=== PATIENT | male | born 1960 | race American Indian/Alaskan Native ===

== ENCOUNTER 2018-02-04 13:41 | Emergency (ER) | payer OTHER | END 2018-02-04 14:45 | disposition left against medical advice (07) | LOC: DL.ED 13:41 | DX: Z53.21 Procedure and treatment not carried out due to patient leaving prior to being seen by health care provider (principal) | CPT/HCPCS: 99283 ==

== ENCOUNTER 2018-02-04 15:39 | Emergency (ER) | payer OTHER ==
[2018-02-04 16:03] VITALS: BP 184/103
[2018-02-04 16:56] LABS: CHLORIDE,CL 103 mmol/L (101-111); SODIUM,NA 136 mmol/L (135-145)
--- NOTE | 2018-02-04 17:10 | EDM.PDOC ---
ED HPI GENERAL MEDICAL PROBLEM - General Chief Complaint: Abdominal Pain Stated Complaint: [id number] APPENDIX Time Seen by Provider: 02/04/18 17:00 Source of Information: Reports: Patient, RN, RN Notes Reviewed History Limitations: Reports: No Limitations - History of Present Illness INITIAL COMMENTS - FREE TEXT/NARRATIVE: Barrington is a 57 yo male who presents to the ED with a two days history of lower abd pain. Reports that the pain started while he was sitting at work. Pain is off and on. Describes as cramping pain. Denies fever, dysuria, flank pain, constipation, diarrhea, or blood in his stool, nausea, or vomiting. Denies hx of abd surgeries or trauma to abd. Onset Date: 02/02/18 Location: Reports: Abdomen Quality: Reports: Ache Severity: Moderate Improves with: Reports: None Worsens with: Reports: None Middle Abdomen Pain Score (Numeric/FACES): 8 - Related Data Allergies Allergy/AdvReac Type Severity Reaction Status Date / Time No Known Allergies Allergy Verified 02/04/18 15:55 Home Meds: Home Meds oxyCODONE 5 mg PO Q6H PRN 06/25/16 [History] Past Medical History - Past Health History Medical/Surgical History: Denies Medical/Surgical History HEENT History: Reports: Impaired Vision Cardiovascular History: Reports: None Respiratory History: Reports: None Gastrointestinal History: Reports: None Genitourinary History: Reports: None Musculoskeletal History: Reports: Back Pain, Chronic, Neck Pain, Chronic, Other (See Below) Other Musculoskeletal History: "pinched nerve in back" Neurological History: Reports: None Psychiatric History: Reports: None Endocrine/Metabolic History: Reports: None Hematologic History: Reports: None Immunologic History: Reports: None Oncologic (Cancer) History: Reports: None Dermatologic History: Reports: None - Infectious Disease History Infectious Disease History: Reports: None - Past Surgical History Head Surgeries/Procedures: Reports: None Social & Family History - Family History Family Medical History: Noncontributory - Tobacco Use Smoking Status *Q: Current Every Day Smoker Years of Tobacco use: 38 Packs/Tins Daily: 1 Used Tobacco, but Quit: No Second Hand Smoke Exposure: Yes - Caffeine Use Caffeine Use: Reports: Coffee - Recreational Drug Use Recreational Drug Use: No - Living Situation & Occupation Living situation: Reports: , with Family Occupation: Employed ED ROS GENERAL - Review of Systems Review Of Systems: ROS reveals no pertinent complaints other than HPI. ED EXAM, GI/ABD - Physical Exam Exam: See Below Exam Limited By: No Limitations General Appearance: Alert, WD/WN, No Apparent Distress Eyes: Bilateral: Normal Appearance, EOMI Ears: Normal External Exam, Normal Canal, Hearing Grossly Normal, Normal TMs Nose: Normal Inspection, Normal Mucosa, No Blood Throat/Mouth: Normal Inspection, Normal Lips, Normal Teeth, Normal Gums, Normal Oropharynx, Normal Voice, No Airway Compromise Head: Atraumatic, Normocephalic Neck: Normal Inspection, Supple, Non-Tender, Full Range of Motion Respiratory/Chest: No Respiratory Distress, Lungs Clear, Normal Breath Sounds, No Accessory Muscle Use, Chest Non-Tender Cardiovascular: Normal Peripheral Pulses, Regular Rate, Rhythm, No Edema, No Gallop, No JVD, No Murmur, No Rub GI/Abdominal Exam: Normal Bowel Sounds, Soft, No Organomegaly, No Distention, No Abnormal Bruit, No Mass, Tender (Bilateral lower abd pain ) (Male) Exam: Deferred Rectal (Males) Exam: Deferred Back Exam: Normal Inspection, Full Range of Motion, NT Extremities: Normal Inspection, Normal Range of Motion, Non-Tender, Normal Capillary Refill, No Pedal Edema Neurological: Alert, Oriented, CN II-XII Intact, Normal Cognition, Normal Gait, Normal Reflexes, No Motor/Sensory Deficits Psychiatric: Normal Affect, Normal Mood Skin Exam: Warm, Dry, Intact, Normal Color, No Rash Lymphatic: No Adenopathy Course - Vital Signs Last Recorded V/S: Last Vital Signs Temp 36.4 C 02/04/18 16:00 Pulse 60 02/04/18 16:00 Resp 16 02/04/18 16:00 BP 184/103 H 02/04/18 16:00 Pulse Ox 100 02/04/18 16:00 - Orders/Labs/Meds Labs: Laboratory Tests 02/04/18 02/04/18 02/04/18 Range/Units 16:10 16:10 16:27 WBC (5.0-10.0) 10^3/uL RBC (4.6-6.2) 10^6/uL Hgb (14.0-18.0) g/dL Hct (40.0-54.0) % MCV (80-100) fL MCH (27.0-34.0) pg MCHC (33.0-35.0) g/dL Plt Count (150-450) 10^3/uL Neut % (Auto) (42.2-75.2) % Lymph % (Auto) (20.5-50.1) % [place] % (Auto) (2-8) % Eos % (Auto) (1.0-3.0) % Baso % (Auto) (0.0-1.0) % Sodium (135-145) mmol/L Potassium (3.6-5.0) mmol/L Chloride (101-111) mmol/L Carbon Dioxide (21.0-31.0) mmol/L Anion Gap BUN (7-18) mg/dL Creatinine (0.6-1.3) mg/dL Est Cr Clr Drug Dosing mL/min Estimated GFR (MDRD) BUN/Creatinine Ratio Glucose (74-105) mg/dL Calcium (8.4-10.2) mg/dl Total Bilirubin (0.2-1.0) mg/dL AST (10-42) IU/L ALT (10-60) IU/L Alkaline Phosphatase (42-121) IU/L Total Protein (6.7-8.2) g/dl Albumin (3.2-5.5) g/dl Globulin Albumin/Globulin Ratio Amylase 18 L (28-100) U/L Lipase 12 L (22-51) U/L Urine Color Yellow (YELLOW) Urine Appearance Clear (CLEAR) Urine pH 7.0 (5.0-9.0) Ur Specific [place] 1.015 (1.005-1.030) Urine Protein Negative (NEGATIVE) Urine Glucose (UA) Negative (NEGATIVE) Urine Ketones Negative (NEGATIVE) Urine Occult Blood Negative (NEGATIVE) Urine Nitrite Negative (NEGATIVE) Urine Bilirubin Negative (NEGATIVE) Urine Urobilinogen 0.2 (0.2-1.0) mg/dL Ur Leukocyte Esterase Negative (NEGATIVE) Urine RBC 0-5 /HPF Urine WBC 0-5 (0-5/HPF) /HPF Ur Epithelial Cells Rare /HPF Urine Bacteria Not seen (0-FEW/HPF) /HPF Urine Opiates Screen Negative (NEGATIVE) Ur Oxycodone Screen Negative (NEGATIVE) Urine Methadone Screen Negative (NEGATIVE) Ur Barbiturates Screen Negative (NEGATIVE) U Tricyclic Antidepress Negative (NEGATIVE) Ur Phencyclidine Scrn Negative (NEGATIVE) Ur Amphetamine Screen Negative (NEGATIVE) U Methamphetamines Scrn Negative (NEGATIVE) Urine MDMA Screen Negative (NEGATIVE) U Benzodiazepines Scrn Negative (NEGATIVE) Urine Cocaine Screen Negative (NEGATIVE) U Marijuana (THC) Screen Negative (NEGATIVE) 02/04/18 02/04/18 Range/Units 16:27 16:27 WBC 10.9 H (5.0-10.0) 10^3/uL RBC 4.84 (4.6-6.2) 10^6/uL Hgb 14.2 (14.0-18.0) g/dL Hct 42.2 (40.0-54.0) % MCV 87.2 (80-100) fL MCH 29.3 (27.0-34.0) pg MCHC 33.6 (33.0-35.0) g/dL Plt Count 295 (150-450) 10^3/uL Neut % (Auto) 53.6 (42.2-75.2) % Lymph % (Auto) 35.0 (20.5-50.1) % [place] % (Auto) 5.3 (2-8) % Eos % (Auto) 5.5 H (1.0-3.0) % Baso % (Auto) 0.6 (0.0-1.0) % Sodium 136 (135-145) mmol/L Potassium 4.9 (3.6-5.0) mmol/L Chloride 103 (101-111) mmol/L Carbon Dioxide 26.0 (21.0-31.0) mmol/L Anion Gap 11.9 BUN 20 H (7-18) mg/dL Creatinine 1.0 (0.6-1.3) mg/dL Est Cr Clr Drug Dosing 80.75 mL/min Estimated GFR (MDRD) > 60 BUN/Creatinine Ratio 20.00 Glucose 106 H (74-105) mg/dL Calcium 8.9 (8.4-10.2) mg/dl Total Bilirubin 0.6 (0.2-1.0) mg/dL AST 18 (10-42) IU/L ALT 20 (10-60) IU/L Alkaline Phosphatase 50 (42-121) IU/L Total Protein 7.2 (6.7-8.2) g/dl Albumin 3.8 (3.2-5.5) g/dl Globulin 3.4 Albumin/Globulin Ratio 1.12 Amylase (28-100) U/L Lipase (22-51) U/L Urine Color (YELLOW) Urine Appearance (CLEAR) Urine pH (5.0-9.0) Ur Specific [place] (1.005-1.030) Urine Protein (NEGATIVE) Urine Glucose (UA) (NEGATIVE) Urine Ketones (NEGATIVE) Urine Occult Blood (NEGATIVE) Urine Nitrite (NEGATIVE) Urine Bilirubin (NEGATIVE) Urine Urobilinogen (0.2-1.0) mg/dL Ur Leukocyte Esterase (NEGATIVE) Urine RBC /HPF Urine WBC (0-5/HPF) /HPF Ur Epithelial Cells /HPF Urine Bacteria (0-FEW/HPF) /HPF Urine Opiates Screen (NEGATIVE) Ur Oxycodone Screen (NEGATIVE) Urine Methadone Screen (NEGATIVE) Ur Barbiturates Screen (NEGATIVE) U Tricyclic Antidepress (NEGATIVE) Ur Phencyclidine Scrn (NEGATIVE) Ur Amphetamine Screen (NEGATIVE) U Methamphetamines Scrn (NEGATIVE) Urine MDMA Screen (NEGATIVE) U Benzodiazepines Scrn (NEGATIVE) Urine Cocaine Screen (NEGATIVE) U Marijuana (THC) Screen (NEGATIVE) Meds: Medications Discontinued Medications Generic Name Dose Route Start Last Admin Trade Name Freq PRN Reason Stop Dose Admin Iopamidol 100 ml 02/04/18 17:06 02/04/18 17:45 Isovue-300 (61%) IVPUSH 02/04/18 17:07 100 ml ONETIME ONE Administration Departure - Departure Time of Disposition: 18:27 Disposition: Home, Self-Care 01 Condition: Good Clinical Impression: Hernia - Discharge Information Forms: ED Department Discharge Additional Instructions: Labs and CT reviewed with patient. Recommend that he follows-up with his primary care provider for a surgical referral for his hernia. Tylenol/Ibuprofen as needed for pain. Patient instructed to not preform any heavy lifting. Follow- up with clinic sooner or return to ED if you develop severe pain, nausea/ vomiting, or fevers. Care Plan Goals:
--- NOTE | 2018-02-04 17:37 | CT ---
Clinical history: 57-year-old 205 pound afebrile male patient with normal white blood cell count comp laining of lower abdominal pain. Scan technique: Volume acquisition of data from the abdomen and pelvis obtained without oral contrast but during the intravenous administration 100 cc nonionic Isovue contrast while lying supine on the Siemens multi slice scanner [place], [place]. All data archived in the PAC system for storage, reformatting axial/sagittal/coronal planes and study. Interpretation: 1. Peritoneal fat in the inguinal canal on the left (no incarcerated bowel). No periumbilical or vent ral wall hernias. 2. Normal caliber abdominal aorta and the lumbar spine unremarkable. No sign of aortic aneurysm or quita mbar disc disease. 3. Normal gallbladder, liver, stomach, spleen, pancreas and adrenal glands. 4. Normal reniform size, axis and configuration bilaterally without sign of renal cortical mass lesio n, nephrolithiasis or obstructive uropathy. Midline prostate gland and symmetric seminal vesicles unr emarkable. Normal urinary bladder. 5. Normal appendix RLQ. No sign of diverticulitis, abdominal/pelvic mass lesion, retroperitoneal lymp hadenopathy, mechanical bowel obstruction, ascites or free intraperitoneal air. 6. Normal heart. Prominent pericardial fat. Lung bases clear. CONCLUSION: No acute intraperitoneal abnormality.
[2018-02-04] MEDS: Iopamidol 612 MG/ML 100 ML Bottle IVPUSH ONE (17:45)
== END 2018-02-04 18:35 | disposition home or self-care (01) ==
LOC: DL.ED 15:39
DX: K46.9 Unspecified abdominal hernia without obstruction or gangrene (principal); F17.210 Nicotine dependence, cigarettes, uncomplicated
CPT/HCPCS: 36415; 74177; 80053; 80305; 81001; 82150; 83690; 85025; 99284; Q9967

== ENCOUNTER 2018-03-01 15:39 | Emergency (ER) | payer OTHER ==
[2018-03-01] MEDS ORDERED: Sodium Chloride 0.9% 10 ML Syringe FLUSH PRN (15:58)
[2018-03-01] MEDS ORDERED: Acetaminophen/HYDROcodone 325-10 MG Tab PO ONE (15:58)
[2018-03-01] MEDS ORDERED: Iopamidol 612 MG/ML 100 ML Bottle IVPUSH ONE (15:58)
[2018-03-01 17:03] VITALS: BP 129/88
--- NOTE | 2018-03-01 18:16 | EDM.PDOC ---
Scribed by Karlene Catherine 03/01/18 1816 for Bobby Javed MD ED HPI GENERAL MEDICAL PROBLEM - General Chief Complaint: Genitourinary Problem Stated Complaint: [id number] SWELLING BELOW GROIN JUST HAD HERNIA SURGE Time Seen by Provider: 03/01/18 15:53 Source of Information: Reports: Patient, RN, RN Notes Reviewed History Limitations: Reports: No Limitations - History of Present Illness INITIAL COMMENTS - FREE TEXT/NARRATIVE: Patient presents with increasing pain and swelling to the right lower quadrant abdomen, right groin, scrotum and proximal medial thigh. Patient is POD #10 S/P laparoscopic inguinal hernia repair by Dr. Iverson at [facility] in [place]. Patient states that he was seen in clinic for his initial postop follow up and was not having this problem at that time. Denies fevers, chills, bowel or urinary symptoms, or wound problems. Patient states he has been resting and elevating his right leg as instructed. Onset: Gradual Duration: Getting Worse Location: Reports: Abdomen, Other (groin) Quality: Reports: Ache Severity: Severe Improves with: Reports: None Worsens with: Reports: Movement Associated Symptoms: Reports: No Other Symptoms Right Groin Pain Score (Numeric/FACES): 7 - Related Data Allergies Allergy/AdvReac Type Severity Reaction Status Date / Time No Known Allergies Allergy Verified 03/01/18 15:44 Home Meds: Home Meds oxyCODONE 5 mg PO Q6H PRN 06/25/16 [History] Ibuprofen 200 mg PO PRN 03/01/18 [History] Past Medical History - Past Health History Medical/Surgical History: Denies Medical/Surgical History HEENT History: Reports: Impaired Vision Cardiovascular History: Reports: None Respiratory History: Reports: None Gastrointestinal History: Reports: None Genitourinary History: Reports: None Musculoskeletal History: Reports: Back Pain, Chronic, Neck Pain, Chronic, Other (See Below) Other Musculoskeletal History: "pinched nerve in back" Neurological History: Reports: None Psychiatric History: Reports: None Endocrine/Metabolic History: Reports: None Hematologic History: Reports: None Immunologic History: Reports: None Oncologic (Cancer) History: Reports: None Dermatologic History: Reports: None - Infectious Disease History Infectious Disease History: Reports: None - Past Surgical History Head Surgeries/Procedures: Reports: None GI Surgical History: Reports: Hernia, Inguinal Social & Family History - Family History Family Medical History: Noncontributory - Tobacco Use Smoking Status *Q: Current Every Day Smoker Years of Tobacco use: 30 Packs/Tins Daily: 1 Used Tobacco, but Quit: No Second Hand Smoke Exposure: Yes - Caffeine Use Caffeine Use: Reports: Coffee, Energy Drinks, Soda - Recreational Drug Use Recreational Drug Use: No - Living Situation & Occupation Living situation: Reports: , with Family Occupation: Employed ED ROS GENERAL - Review of Systems Review Of Systems: ROS reveals no pertinent complaints other than HPI. ED EXAM, GI/ABD - Physical Exam Exam: See Below Exam Limited By: No Limitations General Appearance: Alert, WD/WN, No Apparent Distress Respiratory/Chest: No Respiratory Distress Cardiovascular: Regular Rate, Rhythm GI/Abdominal Exam: Normal Bowel Sounds, Soft, No Distention, Tender (as expected around his incisions, which appear to be well healed. He has generalized acute tenderness and firm swelling to the far right lower quadrant, right inguinal, right scrotal, and right medial proximal thigh without viisble bruising, erythema, and increased warmth. ). No: Guarding, Rigid, Rebound Skin Exam: Warm, Dry, Intact Course - Vital Signs Last Recorded V/S: Last Vital Signs Temp 36.2 C 03/01/18 17:02 Pulse 60 03/01/18 17:02 Resp 16 03/01/18 17:02 BP 129/88 03/01/18 17:02 Pulse Ox 98 03/01/18 17:02 - Orders/Labs/Meds Orders: Active Orders 24 hr Category Date Time Status Peripheral IV Care [RC] . DIRECTED Care 03/01/18 15:58 Active Peripheral IV Insertion Adult [OM.PC] Stat Oth 03/01/18 15:58 Ordered Labs: Laboratory Tests 03/01/18 Range/Units 16:16 WBC 11.9 H (5.0-10.0) 10^3/uL RBC 4.83 (4.6-6.2) 10^6/uL Hgb 13.8 L (14.0-18.0) g/dL Hct 42.4 (40.0-54.0) % MCV 87.8 (80-100) fL MCH 28.6 (27.0-34.0) pg MCHC 32.5 L (33.0-35.0) g/dL Plt Count 319 (150-450) 10^3/uL Neut % (Auto) 54.8 (42.2-75.2) % Lymph % (Auto) 35.0 (20.5-50.1) % [place] % (Auto) 5.7 (2-8) % Eos % (Auto) 4.2 H (1.0-3.0) % Baso % (Auto) 0.3 (0.0-1.0) % Meds: Medications Discontinued Medications Generic Name Dose Route Start Last Admin Trade Name Freq PRN Reason Stop Dose Admin Hydrocodone Bitart/Acetaminophen 1 tab 03/01/18 15:58 03/01/18 16:13 [place] 325-10 Mg PO 03/01/18 15:59 1 tab ONETIME ONE Administration Iopamidol 100 ml 03/01/18 15:58 03/01/18 16:07 Isovue-300 (61%) IVPUSH 03/01/18 15:59 100 ml ONETIME ONE Administration Sodium Chloride 10 ml 03/01/18 15:58 03/01/18 16:13 Saline Flush FLUSH 10 ml ASDIRECTED PRN Administration Keep Vein Open - Radiology Interpretation Free Text/Narrative:: CT abdomen/pelvis: Status post right angle hernia repair by history. Small fluid collection in the region of the right inguinal hernia repair which may be postoperative. This measures approximately 2.3cm. Normal appendix right lower quadrant. Postsurgical changes in the region of the umbilicus. See rad report. Departure - Departure Time of Disposition: 17:07 Disposition: Home, Self-Care 01 Condition: Fair Clinical Impression: Postoperative pain Postoperative complication Qualifiers: Surgical complication system/body Area: digestive system Surgical complication type: other Qualified Code(s): K91.89 - Other postprocedural complications and disorders of digestive system - Discharge Information Instructions: Inguinal Hernia, Adult Referrals: PCP,None [Primary Care Provider] - Forms: ED Department Discharge Additional Instructions: Continue his postoperative instructions given by your surgeon. Call your surgeon tomorrow to arrange appointment for recheck. - My Orders Last 24 Hours: My Active Orders 03/01/18 15:58 Peripheral IV Care [RC] . DIRECTED Peripheral IV Insertion Adult [OM.PC] Stat - Assessment/Plan Last 24 Hours: My Active Orders 03/01/18 15:58 Peripheral IV Care [RC] . DIRECTED Peripheral IV Insertion Adult [OM.PC] Stat I have read and agree with the documentation that has been completed regarding this visit. By signing this record, I attest that the documentation was completed in my physical presence and is an accurate record of the encounter.
== END 2018-03-01 17:18 | disposition home or self-care (01) ==
LOC: DL.ED 15:39
DX: K91.89 Other postprocedural complications and disorders of digestive system (principal); F17.210 Nicotine dependence, cigarettes, uncomplicated; Z98.890 Other specified postprocedural states
CPT/HCPCS: 36415; 74177; 85025; 99284; A9270; J7050; Q9967

== ENCOUNTER 2018-04-04 23:27 | Emergency (ER) | payer OTHER ==
[2018-04-04] MEDS ORDERED: Clindamycin HCl 150 MG Cap PO ONE (23:28)
[2018-04-04] MEDS ORDERED: Acetaminophen/HYDROcodone 325-10 MG Tab PO ONE (23:28)
[2018-04-04 23:57] VITALS: BP 162/97
[2018-04-05] MEDS ORDERED: Clindamycin HCl 150 MG Cap PO ONE (00:07)
[2018-04-05] MEDS ORDERED: Acetaminophen/HYDROcodone 325-10 MG Tab PO ONE (00:07)
--- NOTE | 2018-04-05 00:17 | EDM.PDOC ---
ED HPI GENERAL MEDICAL PROBLEM - General Chief Complaint: ENT Problem Stated Complaint: SEVERE MOUTH PAIN AND SWELLING [id number] Time Seen by Provider: 04/05/18 00:01 Source of Information: Reports: Patient History Limitations: Reports: No Limitations - History of Present Illness INITIAL COMMENTS - FREE TEXT/NARRATIVE: This 58 yo male patient reports to the ED with pain in his upper front teeth and swelling of his gums. The patient reports his symptoms started on Friday (10/11). The patient attempted to get into a dentist, but reports that they were "all closed on Friday". The patient reports that he took Ibuprofen at noon today with very little symptom relief. 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 Right Gums Pain Score (Numeric/FACES): 10 - Related Data Allergies Allergy/AdvReac Type Severity Reaction Status Date / Time No Known Allergies Allergy Verified 04/04/18 23:48 Home Meds: Home Meds Ibuprofen 200 mg PO PRN 03/01/18 [History] Past Medical History - Past Health History Medical/Surgical History: Denies Medical/Surgical History HEENT History: Reports: Impaired Vision Cardiovascular History: Reports: None Respiratory History: Reports: None Gastrointestinal History: Reports: None Genitourinary History: Reports: None Musculoskeletal History: Reports: Back Pain, Chronic, Neck Pain, Chronic, Other (See Below) Other Musculoskeletal History: "pinched nerve in back" Neurological History: Reports: None Psychiatric History: Reports: None Endocrine/Metabolic History: Reports: None Hematologic History: Reports: None Immunologic History: Reports: None Oncologic (Cancer) History: Reports: None Dermatologic History: Reports: None - Infectious Disease History Infectious Disease History: Reports: None - Past Surgical History Head Surgeries/Procedures: Reports: None GI Surgical History: Reports: Hernia, Inguinal Social & Family History - Family History Family Medical History: Noncontributory - Tobacco Use Smoking Status *Q: Current Every Day Smoker Years of Tobacco use: 30 Packs/Tins Daily: 0.2 Second Hand Smoke Exposure: Yes - Caffeine Use Caffeine Use: Reports: Coffee - Recreational Drug Use Recreational Drug Use: No - Living Situation & Occupation Living situation: Reports: , with Family Occupation: Employed ED ROS ENT - Review of Systems Review Of Systems: ROS reveals no pertinent complaints other than HPI. ED EXAM, ENT - Physical Exam Exam: See Below Exam Limited By: No Limitations General Appearance: Alert, WD/WN, Moderate Distress Eye Exam: Bilateral Eye: EOMI, Normal Inspection, PERRL Ears: Normal External Exam, Normal Canal, Hearing Grossly Normal, Normal TMs Nose: Normal Inspection, Normal Mucousa, No Blood Mouth/Throat: Normal Lips, Dental Abcess, Gum Swelling (upper front gums) Head: Atraumatic, Normocephalic Neck: Normal Inspection, Supple, Non-Tender, Full Range of Motion Respiratory/Chest: No Respiratory Distress, Lungs Clear, Normal Breath Sounds, No Accessory Muscle Use, Chest Non-Tender Cardiovascular: Normal Peripheral Pulses, Regular Rate, Rhythm, No Edema, No Gallop, No JVD, No Murmur, No Rub GI/Abdominal: Normal Bowel Sounds, Soft, Non-Tender, No Organomegaly, No Distention, No Abnormal Bruit, No Mass (Male) Exam: Deferred Rectal (Males) Exam: Deferred Back: Normal Inspection, Full Range of Motion Extremities: Normal Inspection, Normal Range of Motion, Non-Tender, No Pedal Edema, Normal Capillary Refill Neurological: Alert, Oriented, CN II-XII Intact, Normal Cognition, Normal Gait, Normal Reflexes, No Motor/Sensory Deficits Psychiatric: Normal Affect, Normal Mood Skin: Warm, Dry, Intact, Normal Color, No Rash Lymphatic: No Adenopathy Course - Vital Signs Last Recorded V/S: Last Vital Signs Temp 37.3 C 04/04/18 23:50 Pulse 68 04/04/18 23:50 Resp 16 04/04/18 23:50 BP 162/97 H 04/04/18 23:50 Pulse Ox 98 04/04/18 23:50 - Orders/Labs/Meds Meds: Medications Discontinued Medications Generic Name Dose Route Start Last Admin Trade Name Freq PRN Reason Stop Dose Admin Hydrocodone Bitart/Acetaminophen 1 tab 04/05/18 00:07 [place] 325-10 Mg PO 04/05/18 00:08 ONETIME ONE Clindamycin HCl 300 mg 04/05/18 00:07 Cle[place] PO 04/05/18 00:08 ONETIME ONE Departure - Departure Time of Disposition: 00:15 Disposition: Home, Self-Care 01 Condition: Fair Clinical Impression: Abscess, dental - Discharge Information Instructions: Dental Abscess, [id number] Care Plan Goals: The patient was advised of the examination results during the visit. The patient was given an oral dose of Clindamycin and [place] while in the ED. The patient was discharged with a dose of Clindamycin (150 mg) #2 to take in the morning and [place] (10/325) #1 to take in 6 hours as needed. The patient was also given a script for Clindamycin (300 mg) to take 1 by mouth 4 times per day for 10 days and [place] (5/325) #8 to take 1 by mouth every 6 hours as needed for pain. The patient should visit a dentist for continued evaluation and further treatment. If the patient has any additional symptoms or further concerns, the patient should follow-up with a dentist, his primary care facility or return to the emergency department.
== END 2018-04-05 00:38 | disposition home or self-care (01) ==
LOC: DL.ED 23:27
DX: K04.7 Periapical abscess without sinus (principal); F17.210 Nicotine dependence, cigarettes, uncomplicated
CPT/HCPCS: 99282; A9270-GY

== ENCOUNTER 2022-11-11 07:47 | Emergency (ER) | payer MEDICAID ==
[2022-11-11 07:57] LABS: ANION GAP 11.8 mEq/L (7-13)
[2022-11-11 07:59] LABS: AMPHETAMINES,URINE NEGATIVE (NEGATIVE); BARBITURATES,URINE NEGATIVE (NEGATIVE); BENZODIAZEPINE,URINE NEGATIVE (NEGATIVE); MDMA (ECSTASY), URINE NEGATIVE (NEGATIVE); METHADONE,URINE NEGATIVE (NEGATIVE); METHAMPHETAMINES,URINE NEGATIVE (NEGATIVE); OPIATES,URINE NEGATIVE (NEGATIVE); OXYCODONE,URINE NEGATIVE (NEGATIVE); PHENCYCLIDINE,URINE NEGATIVE (NEGATIVE); TCA,URINE NEGATIVE (NEGATIVE)
[2022-11-11] MEDS: HYDROmorphone 0.5 MG/0.5 ML Syringe IVPUSH ONE ×3 (08:10→17:33)
[2022-11-11 08:36] LABS: CORONAVIRUS COVID-19 NAA NEGATIVE (NEGATIVE); RESPIRATORY SYNCYTIAL VIR NAA NEGATIVE (NEGATIVE)
[2022-11-11] MEDS: Iopamidol 612 MG/ML 100 ML Bottle IVPUSH ONE (08:50)
[2022-11-11 09:37] VITALS: BP 133/79; PULSE 50
== END 2022-11-11 17:40 ==
LOC: DL.ED 07:47
DX: K81.0 Acute cholecystitis (principal); R00.1 Bradycardia, unspecified; Z72.0 Tobacco use
CPT/HCPCS: 0241U; 36415; 74177; 76705; 80053; 80143; 80179; 80305; 81003; 82140; 82150; 83605; 83690; 83735; 84484; 85025; 87040; 93005; 96374; 96376; 99285; J1170; Q9967

== ENCOUNTER 2023-02-28 17:13 | Emergency (ER) | payer BC, MEDICAID, OTHER ==
[2023-02-28 17:22] VITALS: BP 152/87; PULSE 61
== END 2023-02-28 17:52 | disposition home or self-care (01) ==
LOC: DL.ED 17:13
DX: K42.0 Umbilical hernia with obstruction, without gangrene (principal)
CPT/HCPCS: 99282; 99283

== ENCOUNTER 2023-06-30 21:32 | Observation (INO) | payer MEDICAID ==
[2023-06-30] MEDS ORDERED: Ciprofloxacin 0.3% Ophth Soln 5 ML Bottle EARLF ONE (21:40)
[2023-06-30 21:54] LABS: BASOPHILS PERCENT AUTO 0.1 % (0.0-1.0); EOSINOPHILS PERCENT AUTO 0.6 % (1.0-3.0); HEMATOCRIT 43.9 % (40.0-54.0); HEMOGLOBIN 14.9 g/dL (14.0-18.0); LYMPHOCYTES PERCENT AUTO 32.7 % (20.5-50.1); MEAN CORPUSCULAR HEMOGLOBIN 28.5 pg (27.0-34.0); MEAN CORPUSCULAR HGB CONC 33.9 g/dL (33.0-35.0); MEAN CORPUSCULAR VOLUME 83.9 fL (80-100); MONOCYTES PERCENT AUTO 4.5 % (2-8); NEUTROPHILS PERCENT AUTO 62.1 % (42.2-75.2); PLATELET COUNT,PLT 319 10^3/uL (150-450); RED BLOOD CELL COUNT 5.23 10^6/uL (4.6-6.2)
[2023-06-30] MEDS ORDERED: fentaNYL 100 MCG/2 ML SDV IVPUSH ONE (21:56)
[2023-06-30] MEDS ORDERED: Ondansetron 4 MG/2 ML SDV IVPUSH ONE (21:56)
[2023-06-30 22:16] LABS: LACTIC ACID 1.5 mmol/L (0.4-2.0)
[2023-06-30 22:20] LABS: ALANINE AMINOTRANSFERASE,ALT 21 U/L (16-63); ALBUMIN 3.9 g/dL (3.4-5.0); ALKALINE PHOSPHATASE 67 U/L (46-116); ANION GAP 13.9 mEq/L (7-13); ASPARTATE AMNIOTRANSFERASE,AST 19 U/L (15-37); BILIRUBIN TOTAL 0.2 mg/dL (0.2-1.0); BLOOD UREA NITROGEN,BUN 13 mg/dL (7-18); BUN/CREATININE RATIO 10.6 (No establ ref range); C-REACTIVE PROTEIN 0.3 mg/dL (0.0-0.9); CALCIUM 9.1 mg/dL (8.5-10.1); CARBON DIOXIDE,CO2 29 mmol/L (21-32); CHLORIDE,CL 103 mmol/L (98-107); CREATININE 1.23 mg/dL (0.70-1.30); EST CRCL DRUG DOSING (CG) 61.02 mL/min; GLUCOSE RANDOM 106 mg/dL (70-99); MAGNESIUM 1.7 mg/dL (1.8-2.4); POTASSIUM,K 3.9 mmol/L (3.5-5.1); PROTEIN TOTAL,TP 7.9 g/dL (6.4-8.2); SODIUM,NA 142 mmol/L (136-145)
[2023-06-30] MEDS ORDERED: Ketorolac 30 MG/ML SDV IVPUSH ONE (22:21)
[2023-06-30 22:27] LABS: ESTIMATED GFR 67 mL/min (>=60); ETHANOL BLOOD MEDICAL < 3 mg/dL (0); LIPASE > 2250 U/L (73-393)
[2023-06-30] MEDS ORDERED: Iopamidol 612 MG/ML 100 ML Bottle IVPUSH ONE (22:36)
[2023-06-30] MEDS ORDERED: Sodium Chloride 0.9% 1,000 ML IV ONE (23:33)
[2023-06-30] MEDS ORDERED: HYDROmorphone 1 MG/ML Syringe IVPUSH ONE (23:33)
[2023-06-30 23:38] LABS: APPEARANCE,URINE CLEAR (CLEAR); BILIRUBIN,URINE NEGATIVE (NEGATIVE); COLOR,URINE YELLOW (YELLOW); GLUCOSE,URINE NEGATIVE (NEGATIVE); KETONES,URINE NEGATIVE (NEGATIVE); LEUKOCYTE ESTERASE,URINE NEGATIVE (NEGATIVE); NITRITE,URINE NEGATIVE (NEGATIVE); OCCULT BLOOD,URINE NEGATIVE (NEGATIVE); PH,URINE 7.5 (5.0-9.0); PROTEIN,URINE NEGATIVE (NEGATIVE); UROBILINOGEN,URINE 0.2 mg/dL (0.2-1.0)
[2023-06-30 23:41] LABS: AMPHETAMINES,URINE NEGATIVE (NEGATIVE); BARBITURATES,URINE NEGATIVE (NEGATIVE); BENZODIAZEPINE,URINE NEGATIVE (NEGATIVE); MDMA (ECSTASY), URINE NEGATIVE (NEGATIVE); METHADONE,URINE NEGATIVE (NEGATIVE); METHAMPHETAMINES,URINE NEGATIVE (NEGATIVE); OPIATES,URINE NEGATIVE (NEGATIVE); OXYCODONE,URINE NEGATIVE (NEGATIVE); PHENCYCLIDINE,URINE NEGATIVE (NEGATIVE); TCA,URINE NEGATIVE (NEGATIVE)
[2023-07-01] MEDS ORDERED: Ondansetron 4 MG/2 ML SDV IVPUSH PRN (00:30)
[2023-07-01] MEDS ORDERED: Naloxone 2 MG/2 ML Syringe IVPUSH PRN (00:31)
[2023-07-01] MEDS ORDERED: Lactated Ringers 1,000 ML IV ONE (00:52)
[2023-07-01] MEDS ORDERED: Calcium Carbonate 500 MG Tab.Chew PO ONE (01:34)
[2023-07-01 06:11] LABS: BASOPHILS PERCENT AUTO 0.1 % (0.0-1.0); EOSINOPHILS PERCENT AUTO 0.5 % (1.0-3.0); HEMATOCRIT 40.3 % (40.0-54.0); HEMOGLOBIN 13.3 g/dL (14.0-18.0); LYMPHOCYTES PERCENT AUTO 21.4 % (20.5-50.1); MEAN CORPUSCULAR HEMOGLOBIN 28.1 pg (27.0-34.0); MEAN CORPUSCULAR VOLUME 85.2 fL (80-100); MONOCYTES PERCENT AUTO 6.3 % (2-8); NEUTROPHILS PERCENT AUTO 71.7 % (42.2-75.2); PLATELET COUNT,PLT 266 10^3/uL (150-450); RED BLOOD CELL COUNT 4.73 10^6/uL (4.6-6.2); WHITE BLOOD CELL COUNT,WBC 12.8 10^3/uL (5.0-10.0)
[2023-07-01 06:36] LABS: ALANINE AMINOTRANSFERASE,ALT 15 U/L (16-63); ALKALINE PHOSPHATASE 55 U/L (46-116); ANION GAP 10.6 mEq/L (7-13); ASPARTATE AMNIOTRANSFERASE,AST 14 U/L (15-37); BILIRUBIN TOTAL 0.5 mg/dL (0.2-1.0); BLOOD UREA NITROGEN,BUN 13 mg/dL (7-18); BUN/CREATININE RATIO 10.9 (No establ ref range); CALCIUM 8.2 mg/dL (8.5-10.1); CARBON DIOXIDE,CO2 29 mmol/L (21-32); CHLORIDE,CL 107 mmol/L (98-107); CREATININE 1.19 mg/dL (0.70-1.30); EST CRCL DRUG DOSING (CG) 63.07 mL/min; GLUCOSE RANDOM 100 mg/dL (70-99); MAGNESIUM 1.7 mg/dL (1.8-2.4); POTASSIUM,K 4.6 mmol/L (3.5-5.1); PROTEIN TOTAL,TP 6.3 g/dL (6.4-8.2); SODIUM,NA 142 mmol/L (136-145)
[2023-07-01 06:53] LABS: A/G RATIO 0.91; ESTIMATED GFR 70 mL/min (>=60); LIPASE > 2250 U/L (73-393)
[2023-07-01] MEDS: Morphine 2 MG/ML SYRINGE IVPUSH PRN ×4 (08:12→20:19)
[2023-07-01] MEDS ORDERED: Albuterol/Ipratropium 3.0-0.5 MG/3 ML Neb Soln NEB PRN (08:26)
[2023-07-01] MEDS ORDERED: LORazepam 2 MG/ML SDV IVPUSH PRN (08:33)
[2023-07-01] MEDS ORDERED: hydrALAZINE 20 MG/ML SDV IVPUSH PRN (08:34)
[2023-07-01] MEDS ORDERED: Melatonin 3 MG Tab PO PRN (08:34)
[2023-07-01] MEDS: Nicotine 14 MG/24 Hr Patch TRDERM SCH (10:16)
[2023-07-01] MEDS: Enoxaparin 40 MG/0.4 ML Syringe SUBCUT SCH (10:16)
[2023-07-01 11:23] LABS: B-TYPE NATRIURETIC PEPTIDE,BNP 178 pg/ml (0-100)
[2023-07-01] MEDS: oxyCODONE 5 MG Tab PO PRN ×3 (13:25→22:09)
[2023-07-01] MEDS: Lactated Ringers 1,000 ML IV SCH ×2 (14:35→23:31)
[2023-07-01] MEDS: Acetaminophen 325 MG Tab PO PRN ×2 (16:19→23:29)
[2023-07-01] MEDS ORDERED: HYDROmorphone 1 MG/ML Syringe IVPUSH PRN ×2 (21:29→21:33)
[2023-07-01] MEDS ORDERED: Polyethylene Glycol 3350 Powder 17 GM Packet PO PRN (21:30)
[2023-07-02] MEDS: oxyCODONE 5 MG Tab PO PRN ×2 (04:09→10:30)
[2023-07-02 05:43] LABS: BASOPHILS PERCENT AUTO 0.3 % (0.0-1.0); EOSINOPHILS PERCENT AUTO 5.3 % (1.0-3.0); HEMATOCRIT 40.4 % (40.0-54.0); HEMOGLOBIN 13.4 g/dL (14.0-18.0); LYMPHOCYTES PERCENT AUTO 19.4 % (20.5-50.1); MEAN CORPUSCULAR HEMOGLOBIN 28.6 pg (27.0-34.0); MEAN CORPUSCULAR HGB CONC 33.2 g/dL (33.0-35.0); MEAN CORPUSCULAR VOLUME 86.1 fL (80-100); MONOCYTES PERCENT AUTO 10.1 % (2-8); NEUTROPHILS PERCENT AUTO 64.9 % (42.2-75.2); PLATELET COUNT,PLT 225 10^3/uL (150-450); RED BLOOD CELL COUNT 4.69 10^6/uL (4.6-6.2)
[2023-07-02] MEDS ORDERED: Omeprazole 20 MG Cap.CR PO SCH (06:00)
[2023-07-02 06:15] LABS: ALBUMIN 2.9 g/dL (3.4-5.0); ANION GAP 12.2 mEq/L (7-13); BILIRUBIN TOTAL 0.9 mg/dL (0.2-1.0); BUN/CREATININE RATIO 10.9 (No establ ref range); CREATININE 1.28 mg/dL (0.70-1.30); EST CRCL DRUG DOSING (CG) 58.63 mL/min; POTASSIUM,K 4.2 mmol/L (3.5-5.1); PROTEIN TOTAL,TP 6.3 g/dL (6.4-8.2)
[2023-07-02 06:16] LABS: HEMOGLOBIN A1C 5.2 % (<5.7)
[2023-07-02 06:17] LABS: A/G RATIO 0.85
[2023-07-02] MEDS: Acetaminophen 325 MG Tab PO PRN (06:49)
[2023-07-02] MEDS: Nicotine 14 MG/24 Hr Patch TRDERM SCH (08:01)
[2023-07-02] MEDS: Enoxaparin 40 MG/0.4 ML Syringe SUBCUT SCH (08:01)
[2023-07-02] MEDS: Lactated Ringers 1,000 ML IV SCH (10:29)
[2023-07-02 13:59] VITALS: BP 164/86; PULSE 69
== END 2023-07-02 14:15 | disposition home or self-care (01) ==
LOC: DL.ED 21:32 → DL.MS 07-01 00:26
PROVIDERS: ADMIT Internal Medicine; ATTEND Internal Medicine
DX: K85.90 Acute pancreatitis without necrosis or infection, unspecified (principal); I10 Essential (primary) hypertension; E83.42 Hypomagnesemia; G89.29 Other chronic pain; M54.2 Cervicalgia; M54.9 Dorsalgia, unspecified; F17.210 Nicotine dependence, cigarettes, uncomplicated; Z98.890 Other specified postprocedural states; Z90.49 Acquired absence of other specified parts of digestive tract; Z79.899 Other long term (current) drug therapy
CPT/HCPCS: 36415; 74177; 80053; 80061; 80305-QW; 80307; 81003; 83036; 83605; 83690; 83735; 83880; 84145; 84484; 85025; 86140; 93005; 93010; 96361; 96372; 96374; 96375; 96376; 99222; 99239; 99284; 99285-25; A9270-GY; G0378; J1170; J1650; J1885; J2270; J2405; J3010; J7030; J7120; Q9967

== ENCOUNTER 2023-08-12 06:44 | Day surgery (SDC) | payer MEDICAID ==
[~2023-08-12 06:44] MED LIST: Dextrose 5%-0.45% NaCl 1,000 ML IV SCH
[2023-08-12] MEDS ORDERED: fentaNYL 100 MCG/2 ML SDV IV ONE ×3 (06:45→08:02)
[2023-08-12] MEDS ORDERED: Midazolam 1 MG/ML 2 ML SDV IV ONE ×3 (06:45→08:03)
[2023-08-12] MEDS ORDERED: Midazolam 1 MG/ML 2 ML SDV ONE (07:20)
[2023-08-12] MEDS ORDERED: fentaNYL 100 MCG/2 ML SDV ONE (07:21)
[2023-08-12 09:21] VITALS: BP 146/86; PULSE 52
== END 2023-08-12 09:20 | disposition home or self-care (01) ==
LOC: DL.ENDO 06:44
PROVIDERS: ATTEND Internal Medicine Gastroenterology
DX: E66.09 Other obesity due to excess calories (principal); K29.50 Unspecified chronic gastritis without bleeding; K22.70 Barrett's esophagus without dysplasia; I10 Essential (primary) hypertension; Z95.5 Presence of coronary angioplasty implant and graft; K21.9 Gastro-esophageal reflux disease without esophagitis; F17.210 Nicotine dependence, cigarettes, uncomplicated; Z98.890 Other specified postprocedural states; Z68.29 Body mass index [BMI] 29.0-29.9, adult
CPT/HCPCS: 87077; J2250; J3010; J7042

== ENCOUNTER 2023-10-01 21:07 | Emergency (ER) | payer MEDICAID | END 2023-10-01 21:28 | disposition left against medical advice (07) | LOC: DL.ED 21:07 | DX: Z53.21 Procedure and treatment not carried out due to patient leaving prior to being seen by health care provider (principal) ==

== ENCOUNTER 2024-07-27 21:20 | Emergency (ER) | payer MEDICAID ==
[2024-07-27 22:03] VITALS: BP 183/107; PULSE 55
== END 2024-07-27 23:18 | disposition left against medical advice (07) ==
LOC: DL.ED 21:20
DX: Z53.21 Procedure and treatment not carried out due to patient leaving prior to being seen by health care provider (principal)